=== PATIENT | female | born 1990 | race Caucasian/White ===

== ENCOUNTER 2016-08-05 21:53 | Emergency (ER) | payer OTHER, MEDICAID ==
[~2016-08-05] VITALS: Ht 154.9 cm; Wt 53.6 kg
[2016-08-05 21:54] VITALS: BP 142/96; PULSE 126; RESP 22; O2SAT 95
--- NOTE | 2016-08-05 22:49 | ED.REPORT ---
HPI-General Illness Date of Service Aug 05, 2016 ED Provider: Angel Celeste MD Pt is a 25 y/o female w/ a hx of anxiety presenting to the ED c/o SOB onset today. The patient states she had a panic attack associated with SOB which did not alleviate after drinking 3 beers. Pt denies nausea, vomiting, CP, diaphoresis, fever, chills, cough. For several months, she has been experiencing intermittent episodes of non-radiating chest tightness which are sometimes brought on by anxiety, palpitations, lightheadedness, syncope. She notes months of easy bruising and lab abnormalities taken 4 days ago which are related to "her liver and potassium". Her son was diagnosed with pneumonia 2 weeks ago. Her shortness of breath is resolved at time of interview. Nursing Notes Stated Complaint: SOB Chief Complaint: General Complaint Nursing Notes Reviewed: Yes Allergies: Coded Allergies: No Known Allergies (Unverified , 08/05/16) General Time Seen by MD: 21:59 Chief Complaint Other (SOB) Hx Obtained From: Patient Arrived By: Walk-in Sudden in Onset?: Yes Onset Occurred: 1 - 4 hours ago Symptom Duration: Since onset Severity: Current: No pain currently Severity: Maximum: No pain Similar Sx Previous: Yes Past Medical History Past Medical History Anxiety Past Surgical History None reported Smoking History Never Smoker Social History Drug Use: Denies drug use Ambulatory Status Independent Review of Systems Full Review of Systems Constitutional: Denies: Chills, Fever Respiratory: Reports: Shortness of breath, Denies: Non-productive cough Cardiovascular: Reports: Palpitations, Denies: Chest pain GI: Denies: Nausea, Vomiting Neurologic: Reports: Lightheaded, Syncope Psychiatric: Reports: Anxiety Complete sys rev & neg: except as marked. Physical Exam Vital Signs Vital Signs Date Time Temp Pulse Resp B/P Pulse Ox O2 Delivery O2 Flow Rate FiO2 08/06/16 01:59 14 14 107/74 97 Room Air 08/06/16 01:05 85 20 96 Room Air 08/06/16 00:19 105 16 119/71 93 Room Air 08/05/16 23:27 111 16 126/81 97 Room Air 08/05/16 21:54 36.1 126 22 142/96 95 Room Air Initial VS: Reviewed, Vital signs abnormal Head / Eyes: Atraumatic, Normocephalic, PERRL ENT: Mucous membranes moist, Conjunctiva normal, No scleral icterus Neck: Supple, Full range of motion Respiratory: Breath sounds normal, Clear to auscultation, No respiratory distress Extremities: Vascular intact, Neuro intact, No swelling, No tenderness Neurologic: Alert, Oriented, Nonfocal Psychiatric: Mood/affect normal, Behavior normal, Normal thought content General/Constitutional: Awake, Alert, No acute distress, Cooperative, Not toxic appearing Cardiovascular: Regular rhythm, Heart sounds NL, No gallop, No murmurs, No rubs , Cap refill not delayed, Peripheral circulation NL Heart Rate / Rhythm: Positive: Tachycardia Abdomen: Atraumatic, Soft, No guarding, No rebound, No distention, No palpable mass Tenderness/Guarding/Rebound: Positive: Tender epigastric (mild) Interpretation & Diagnostics Lab Results Interpretation Result Diagram: 08/05/168 08/05/16 2318 Test 08/05/16 23:18 White Blood Count 6.6th/mm3 (3.8-10.1) Red Blood Count 4.03mil/mm3 (3.90-5.20) Hemoglobin 12.4g/dL (12.0-15.6) Hematocrit 37.4% (35.0-46.0) Mean Corpuscular Volume 92.8fL (81-100) Mean Corpuscular Hemoglobin 30.8pg (27.0-35.0) Mean Corpuscular Hemoglobin Concent 33.2% (32.0-37.0) Red Cell Distribution Width 13.5% (12.3-15.4) Platelet Count 356bil/L (150-400) Neutrophils (%) (Auto) 47.2% (40-74) Lymphocytes (%) (Auto) 43.7% (14-46) Monocytes (%) (Auto) 6.6% (4-12) Eosinophils (%) (Auto) 0.8% (0-5) Basophils (%) (Auto) 1.5% (0-3) Band Neutrophils % 0% (1-5) D-Dimer 0.7mg/L (<0.50) Sodium Level 144mEq/L (134-144) Potassium Level 3.8mEq/L (3.5-5.2) Chloride Level 103mEq/L (97-108) Carbon Dioxide Level 21mmol/L (18-29) Blood Urea Nitrogen 11mg/dL (6-20) Creatinine 0.57mg/dL (0.57-1.00) Estimat Glomerular Filtration Rate 188mL/min (>59) Glucose Level 81mg/dL (60-99) Calcium Level 8.8mg/dL (8.5-10.1) Total Bilirubin 0.2mg/dL (0.0-1.2) Aspartate Amino Transf (AST/SGOT) 89U/L (0-50) Alanine Aminotransferase (ALT/SGPT) 70U/L (0-32) Alkaline Phosphatase 60U/L (25-150) Troponin T 0.010ug/L (0.0-0.011) Total Protein 7.5g/dL (6.4-8.4) Albumin 4.5g/dL (3.4-5.0) Lipase 59U/L (13-60) Hold Martinez Top Tube Received (Received) ECG Interpretation ECG Interpretation: Sinus tachycardia rate 103 Time: 22:15 Interpreted by: ED physician Normal ECG Interpretation: No acute ischemic changes X-Ray Chest Interpretation View: Portable, 1 view Interpretation / Wet Read by: Wet read ED physician NL X-Ray Chest Findings: No infiltrate, No acute disease CT Chest Interpretation Conclusion: No CT evidence of pulmonary emboli. No acute intrathoracic pathology. Pronounced fatty infiltration of the liver. Transmitted to the ED by Maurice Valencia MD at 0135 Study type: CT pulm angiogram Interpretation / Wet Read by: Interpret - Radiologist Re-Eval/Medical Decision Med Decision/Clinical Course 25-year-old female presenting complaining of panic attack earlier today. She also reports episodes of shortness of breath over the last month. No other associated symptoms. Vital signs stable. Troponins negative. D-dimer mildly elevated. CT angio chest no evidence of PE. Patient's symptoms consistent with anxiety. Recommend follow-up with primary doctor. Return precautions given. Time of Eval: 02:00 Re-Evaluation/Progress Note: Pt rechecked. Discussed negative imaging results. Informed pt of plan for treatment. Pt understands and agrees with plan for treatment. F/U instructions and RTER warnings given. All questions addressed. Counseled Regarding: Diagnosis, Lab results, Need for follow-up, When/why to return to ED Discharge & Departure Primary Impression: Shortness of breath Additional Impressions: Panic attack Fatty liver Disposition: Home Discharge Condition All VS Reviewed: Yes Condition: Stable Patient Instructions: Panic Disorder (ED) Additional Instructions: Your labs today were normal other than the D-Dimer which was mildly elevated which indicated the need for a CT scan. The CT scan showed no sign of blood clot in the lungs. It did show fatty infiltration of the liver which is commonly caused by alcohol. Return to the emergency department for worsening shortness of breath, high fever , vomiting, or for other concerning symptoms. Follow-up with a primary care doctor later this week. Please discuss these panic attacks at that time. Anti-anxiety medications may be considered. Referrals: Matty Pinto MD (PCP) [place] Attestation Portions of this note were transcribed by Mehran Tucker. I, Dr. Celeste, personally performed the history, physical exam and medical decision-making; I reviewed and confirmed the accuracy of the information in the transcribed note. Signed by Davie Castillo, 08/05/16 - 3161 copies to: Matty Pinto MD, Ben M MD Aug 05, 2016 22:49 MEHRAN TUCKER Aug 05, 2016 22:58
[2016-08-05 23:27] VITALS: BP 126/81; PULSE 111; RESP 16; O2SAT 97
[2016-08-05 23:30] LABS: BASOPHILS % (AUTO) 1.5 % (0-3); EOSINOPHILS % (AUTO) 0.8 % (0-5); MONOCYTES % (AUTO) 6.6 % (4-12); Mean Corpuscular Hemoglobin 30.8 pg (27.0-35.0); Mean Corpuscular Volume 92.8 fL (81-100); NEUTROPHILS % (AUTO) 47.2 % (40-74); Platelet Count 356 bil/L (150-400)
[2016-08-06 00:19] VITALS: BP 119/71; PULSE 105; RESP 16; O2SAT 93
[2016-08-06 00:26] LABS: TROPONIN T 0.01 ug/L (0.0-0.011)
[2016-08-06] MEDS ORDERED: Albuterol 2.5 mg/3 mL Inhalation Solution NEB ONE (00:35)
[2016-08-06 01:05] VITALS: PULSE 85; RESP 20; O2SAT 96
[2016-08-06 01:59] VITALS: BP 107/74; PULSE 14; RESP 14; O2SAT 97
[2016-08-06 02:11] VITALS: BP 107/74; PULSE 14; RESP 14; O2SAT 97
--- NOTE | 2016-08-06 08:06 | DRSVH ---
PROCEDURE: CT ANGIO CHEST PULMONARY EMBOLISM ([id number]) INDICATIONS: dyspnea elevated ddimer TECHNIQUE: After the administration of intravenous contrast, 2 mm thick sections acquired from the pulmonary api laura to the posterior costophrenic angles. 3-dimensional maximum intensity projection (MIP) coronal a nd sagittal reformats were then acquired through the thorax. For radiation dose reduction, the follo wing was used: automated exposure control, adjustment of mA and/or kV according to patient size. COMPARISON: None. FINDINGS: Image quality: Excellent. Pulmonary arteries: Pulmonary arteries are normal in size, and demonstrate no intraluminal filling d efects to suggest central pulmonary embolism. Lungs and pleura: Lungs are clear. No pleural effusions or pneumothorax. Central and peripheral ai rways are patent. Mediastinum: Heart size is normal, without pericardial effusion. No mediastinal or hilar adenopathy . Thoracic aorta is normal in caliber and enhancement. Esophagus is normal in caliber, without hiat al hernia. Bones and chest wall: No suspicious bony lesions. Ribs and thoracic spine appear intact throughout. Thyroid gland appears normal. No axillary or supraclavicular adenopathy. Abdomen: Visualized upper abdominal solid organs appear normal in the early arterial phase of enhanc ement, noting considerable fatty infiltration of the liver. IMPRESSION: 1. Exam is negative for pulmonary embolic disease. 2. No acute cardiopulmonary abnormality. 3. Hepatic steatosis. Findings are concordant with the preliminary report Dictated by: Mesfin Avalos M.D. on 08/06/2016 at 8:02 Approved by: Mesfin Avalos M.D. on 08/06/2016 at 8:05
--- NOTE | 2016-08-06 09:05 | DRSVH ---
PROCEDURE: X-RAY CHEST ONE VIEW, PORTABLE ([id number]) INDICATIONS: dyspnea TECHNIQUE: One view of the chest was acquired. COMPARISON: [facility], CT, CT ANGIO CHEST PE, 08/06/2016, 0:37. FINDINGS: Surgical changes and devices: None. Lungs and pleura: No pleural effusions or pneumothorax. Lungs are clear. Mediastinum: Mediastinal contours appear normal. Heart size is normal. Bones and chest wall: No suspicious bony lesions. Overlying soft tissues appear unremarkable. IMPRESSION: No acute cardiopulmonary disease. Dictated by: Mateus LOTT Interpreted: Ora Yung MD on 08/06/2016 at 9:04 Transcribed by: THIERNO on 08/06/2016 at 9:04 Approved by: Ora Yung M.D. on 08/06/2016 at 16:37
== END 2016-08-06 02:12 | disposition home or self-care (01) ==
LOC: SED 21:53
DX: F41.0 Panic disorder [episodic paroxysmal anxiety] (principal); K76.0 Fatty (change of) liver, not elsewhere classified
CPT/HCPCS: 36415; 71010; 71275; 80053; 83690; 84484; 85025; 85379; 93005; 94664; 99285; J7613; Q9967

== ENCOUNTER 2016-09-15 06:23 | Emergency (ER) | payer OTHER ==
[2016-09-15 06:27] VITALS: BP 115/64; PULSE 126; RESP 24; O2SAT 97
--- NOTE | 2016-09-15 06:32 | ED.REPORT ---
HPI-General Illness Date of Service Sep 15, 2016 ED Provider: Camille Infante MD Pt is a 26 y.o.female with a hx of anxiety who presents to the ED c/o increased anxiety. Pt states that she was seen in the ED on 08/05/16 and was diagnosed with anxiety and she declined medications as she wanted to "deal with it herself ". Since she was seen here last she notes increasing anxiety, weight loss, insomnia, dry skin, random bruising, and a tremor. Denies constipation and diarrhea. She states that her anxiety got so bad last week that she tried to control it through ETOH use. She endorses to a 4-5 nights of "binge-drinking" consuming less than half a fifth of vodka a night. When she realized the ETOH use was not improving her anxiety and associated sx she stopped immediately and has not consumed ETOH in 3 days. She reports associated nausea, vomiting with hematemesis, chest pain, and decreased PO intake over the last 3 days. Nursing Notes Stated Complaint: CAN'T BREATHE,NOT EATING,BLOOD IN URINE Chief Complaint: General Complaint Nursing Notes Reviewed: Yes Allergies: Coded Allergies: No Known Allergies (Unverified , 09/15/16) Scheduled Propranolol HCl (Propranolol HCl) 20 Mg Tablet 20 MG PO TID Scheduled PRN Hydroxyzine Pamoate (HydrOXYzine Pamoate) 25 Mg Capsule 25 MG PO Q6 PRN PRN For Itching General Time Seen by MD: 06:31 Chief Complaint Other (Anxiety) Hx Obtained From: Patient Arrived By: Walk-in Sudden in Onset?: No Onset Occurred: More than a week ago... Location: : Chest Quality: Painful Severity: Current: Mild Past Medical History Past Medical History Anxiety Past Surgical History None reported Smoking History Never Smoker Social History Drug Use: Denies drug use Ambulatory Status Independent Review of Systems Decreased PO intake Dry skin Full Review of Systems Constitutional: Reports: Recent wt loss Cardiovascular: Reports: Chest pain GI: Reports: Hematemesis, Nausea, Vomiting, Denies: Constipation, Diarrhea Hematologic: Reports Bruising Endocrine: Reports: Weight loss Neurologic: Reports: Abnormal movement (Tremor) Psychiatric: Reports: Anxiety, Insomnia Complete sys rev & neg: except as marked. Physical Exam Vital Signs Vital Signs Date Time Temp Pulse Resp B/P Pulse Ox O2 Delivery O2 Flow Rate FiO2 09/15/16 10:32 97 16 123/61 99 Room Air 09/15/16 10:01 97 16 123/61 99 Room Air 09/15/16 08:30 97 17 124/75 99 Room Air 09/15/16 07:01 104 20 115/64 100 Room Air 09/15/16 06:27 126 24 115/64 97 Room Air Initial VS: Reviewed Extremities: Vascular intact, Neuro intact Psychiatric: Mood/affect normal, Behavior normal, Normal thought content General/Constitutional: Awake, Alert, Well appearing, Well developed, Well hydrated, Well nourished, Not toxic appearing Behavior: Positive: Anxious Head / Eyes: Atraumatic, Normocephalic Neck: Atraumatic, Supple, Non-tender, Thyroid NL Soft Tissue Neck: Negative: Thyroid bruit present, Thyroid mass L, Thyroid mass R Respiratory / Chest: Atraumatic, Breath sounds NL, Breath sounds = bilat, No respiratory distress, No wheezing Cardiovascular: Regular rhythm, Heart sounds NL, Peripheral circulation NL Heart Rate / Rhythm: Positive: Tachycardia Abdomen: Atraumatic, Soft, Non-tender, No guarding, No rebound, No distention Skin: Atraumatic, Warm, Dry, Intact Neurologic: Oriented X3, Speech NL Movement Abnormality: Positive: Tremor (fine) Not hyperreflexive Interpretation & Diagnostics Lab Results Interpretation Result Diagram: 09/15/16 0645 09/15/16 0645 Test 09/15/16 06:45 White Blood Count 11.1th/mm3 (3.8-10.1) Red Blood Count 4.43mil/mm3 (3.90-5.20) Hemoglobin 14.4g/dL (12.0-15.6) Hematocrit 41.7% (35.0-46.0) Mean Corpuscular Volume 94.1fL (81-100) Mean Corpuscular Hemoglobin 32.5pg (27.0-35.0) Mean Corpuscular Hemoglobin Concent 34.5% (32.0-37.0) Red Cell Distribution Width 13.5% (12.3-15.4) Platelet Count 214bil/L (150-400) Neutrophils (%) (Auto) 83.1% (40-74) Lymphocytes (%) (Auto) 5.2% (14-46) Monocytes (%) (Auto) 11.2% (4-12) Eosinophils (%) (Auto) 0% (0-5) Basophils (%) (Auto) 0.2% (0-3) Sodium Level 134mEq/L (134-144) Potassium Level 3.6mEq/L (3.5-5.2) Chloride Level 82mEq/L (97-108) Carbon Dioxide Level 11mmol/L (18-29) Blood Urea Nitrogen 19mg/dL (6-20) Creatinine 1.45mg/dL (0.57-1.00) Estimat Glomerular Filtration Rate 64mL/min (>59) Glucose Level 142mg/dL (60-99) Calcium Level 10.2mg/dL (8.5-10.1) Magnesium Level 2.0mg/dL (1.6-2.6) Total Bilirubin 1.1mg/dL (0.0-1.2) Aspartate Amino Transf (AST/SGOT) 216U/L (0-50) Alanine Aminotransferase (ALT/SGPT) 152U/L (0-32) Alkaline Phosphatase 78U/L (25-150) Total Protein 9.6g/dL (6.4-8.4) Albumin 5.4g/dL (3.4-5.0) Lipase 120U/L (13-60) Hold Martinez Top Tube Received (Received) Re-Eval/Medical Decision Source of Hx: Old records Time of Eval: 09:10 Patient Status: Condition improved Re-Evaluation/Progress Note: Pt rechecked. Pt feels improved. Pt's tremor has improved. Pt has not provided a urine sample yet. Discussed plan for discharge when all labs are resulted, pt understands and agrees with plan. Time of Eval: 10:24 Re-Evaluation/Progress Note: Pt rechecked and she is still feeling improved. Discussed prescriptions and plan for discharge, pt undertsands and agrees with plan. Counseled Regarding: Diagnosis, Lab results, Need for follow-up, When/why to return to ED Discharge & Departure Primary Impression: Anxiety Additional Impressions: Dehydration Alcohol use Disposition: Home Discharge Condition All VS Reviewed: Yes Condition: Improved Patient Instructions: Abuse of Alcohol (ED), Dehydration (ED), Generalized Anxiety Disorder (ED) Additional Instructions: Thank you for entrusting us with your care today. Your symptoms were most likely due to dehydration, excessive alcohol intake, and thyroid disease. Take Propranolol as directed for elevated heart rate and anxiety. Take Vistaril as directed for anxiety. You should call Dr. Rahman this week to schedule an appointment to discuss further treatment options regarding your thyroid problems and anxiety. I hope you start to feel better soon! Referrals: Viki Rahman MD (PCP) Scribe Attestation Portions of this note were transcribed by Joslyn Manzano. I, Dr. Infante personally performed the history, physical exam and medical decision-making; I reviewed and confirmed the accuracy of the information in the transcribed note. Signed by: Davie Cote, 09/15/16 and 1025. copies to: Viki Rahman MD, Shawna L MD Sep 15, 2016 06:32 JOSLYN MANZANO Sep 15, 2016 06:40
[2016-09-15 07:01] VITALS: BP 115/64; PULSE 104; RESP 20; O2SAT 100
[2016-09-15 07:09] LABS: BASOPHILS % (AUTO) 0.2 % (0-3); EOSINOPHILS % (AUTO) 0 % (0-5); MONOCYTES % (AUTO) 11.2 % (4-12); Mean Corpuscular Hemoglobin 32.5 pg (27.0-35.0); Mean Corpuscular Volume 94.1 fL (81-100); NEUTROPHILS % (AUTO) 83.1 % (40-74); Platelet Count 214 bil/L (150-400)
[2016-09-15 08:30] VITALS: BP 124/75; PULSE 97; RESP 17; O2SAT 99
[2016-09-15] MEDS ORDERED: 0.9% Sodium Chloride 1,000 ML IV ONE (09:20)
[2016-09-15] MEDS ORDERED: HYDR-3797 PO (09:31)
[2016-09-15] MEDS ORDERED: PROP20TA5 PO (09:31)
[2016-09-15 10:01] VITALS: BP 123/61; PULSE 97; RESP 16; O2SAT 99
[2016-09-15 10:32] VITALS: BP 123/61; PULSE 97; RESP 16; O2SAT 99
[2016-09-17 01:09] LABS: Free Thyroxine Index 1.7 (1.2-4.9); Thyroxine (T4) 5.4 ug/dL (4.5-12.0)
== END 2016-09-15 10:32 | disposition home or self-care (01) ==
LOC: SED 06:23
DX: F41.9 Anxiety disorder, unspecified (principal); E86.0 Dehydration; F10.10 Alcohol abuse, uncomplicated
CPT/HCPCS: 36415; 80053; 81025; 83690; 83735; 84436; 84479; 85025; 96361; 96374; 99284; J2060; J7030